=== PATIENT | male | born 1940 | race Caucasian/White ===

== ENCOUNTER 2017-08-20 19:58 | Emergency (ER) | payer MEDICARE ==
[~2017-08-20] VITALS: Ht 175.3 cm; Wt 75.0 kg
[2017-08-20 20:06] VITALS: BP 118/60; PULSE 74; RESP 16; TEMP 98.3; O2SAT 96
--- NOTE | 2017-08-20 20:28 | PD ---
HPI Chief Complaint: Fall Time Seen by Provider: 20:17 Travel History International Travel<30 days: No Contact w/Intl Traveler<30days: No Traveled to known affect area: No History of Present Illness HPI 77-year-old male presents the emergency department status post tripping and fall at approximately noontime today. Patient remembers the fall and denies loss of consciousness but states he did feel somewhat dazed for an hour or 2 afterwards. Patient is complaining of pain in the upper central neck cervical collar was placed in triage. Patient denies significant headache but does have some pain with an abrasion to the anterior forehead. Patient denies any other injury currently. The pain and neck is about a 6 out of 10. He states it's improved wearing a cervical collar. He has no known drug allergies. [facility] Social History Alcohol Use: No Tobacco Use: No Substance Use: No Allergies-Medications (Allergen,Severity, Reaction): Coded Allergies: No Known Allergies (Unverified , 08/20/17) Reported Meds & Prescriptions Reported Meds & Active Scripts Active Reported [ Areds] 1 Drop EACH EYE HS Latanoprost Opth Drops (Latanoprost) 0.005% Drops 1 Drop EACH EYE HS Refrigerate until opened. Furosemide 20 Mg Tab 20 Mg PO DAILY Spironolactone 100 Mg Tab 100 Mg PO DAILY Fluoxetine (Fluoxetine HCl) 20 Mg Tab 20 Mg PO DAILY Tramadol (Tramadol HCl) 50 Mg Tab 50 Mg PO Q6H PRN Lactulose 10 Gram/15 Ml (15 Ml) Solution 10 Mg PO DAILY Review of Systems Except as stated in HPI: all other systems reviewed are Neg General / Constitutional: No: Fever Eyes: No: Diploplia, Blurred Vision, Photophobia, Blind Spots, Visual changes, Blindness HENT: Positive: Neck Stiffness (see history present), Neck Pain, No: Headaches , Vertigo, Lightheadedness Cardiovascular: No: Chest Pain or Discomfort Respiratory: No: Shortness of Breath Gastrointestinal: No: Abdominal Pain Genitourinary: No: Dysuria Musculoskeletal: No: Pain Skin: No Rash Neurologic: No: Weakness Psychiatric: No: Depression Endocrine: No: Polydipsia Hematologic/Lymphatic: No: Easy Bruising Physical Exam Narrative GENERAL: Patient is alert and oriented 3. SKIN: Warm and dry. Normal color. Normal turgor. Patient has a very superficial abrasion to the anterior right forehead approximately quarter- sized. There is no significant bleeding. There are are no other significant skin wounds noted. HEAD: Atraumatic. Normocephalic. Mildly tender in the contusion site. No bony tenderness. EYES: Pupils equal and round. No scleral icterus. No injection or drainage. Ocular motions are normal bilaterally. No nystagmus. ENT: No nasal bleeding or discharge. Mucous membranes pink and moist. No dental injury. Pharynx is clear. Airway is patent. NECK: Trachea midline. Cervical collar is maintained for CT clearance of the cervical spine. CARDIOVASCULAR: Regular rate and rhythm. No murmurs gallops or rubs appreciated. RESPIRATORY: No accessory muscle use. Clear to auscultation. Breath sounds equal bilaterally. GASTROINTESTINAL: Abdomen soft, non-tender, nondistended. Hepatic and splenic margins not palpable. MUSCULOSKELETAL: Extremities without clubbing, cyanosis, or edema. No obvious deformities. NEUROLOGICAL: Awake and alert. No obvious cranial nerve deficits. Motor grossly within normal limits. Five out of 5 muscle strength in the arms and legs. Normal speech. PSYCHIATRIC: Appropriate mood and affect; insight and judgment normal. Data Data Last Documented VS Vital Signs Date Time Temp Pulse Resp B/P (MAP) Pulse Ox O2 Delivery O2 Flow Rate FiO2 08/20/17 20:23 Room Air 08/20/17 20:06 98.3 74 16 118/60 (79) [address] Brain W/O Iv Contrast(Rout) (08/20/17 20:17) Ct Cerv Spine W/O Contrast (08/20/17 20:17) Tetanus/Diphtheria Tox Adult (Tetanus/Di (08/20/17 20:45) MDM Medical Decision Making Medical Screen Exam Complete: Yes Emergency Medical Condition: Yes Differential Diagnosis Trip and fall. Head contusion. Neck pain. Neck fracture. Intracranial bleed. Narrative Course Appears no acute distress. He is alert and oriented 3. CT of the head and neck are ordered. Patient states he already took some tramadol that he had at home as well as some aspirin. 2100 hrs., CTs are still pending. Patient is discussed with Dr. Booth who will assume care of the patient is a term and final disposition. Condition: Stable Salvador Veras Aug 20, 2017 20:28
[2017-08-20] MEDS ORDERED: LACT10SO5 PO (20:35)
[2017-08-20] MEDS ORDERED: FURO20TA PO (20:35)
[2017-08-20] MEDS ORDERED: FLUO1TAB3 PO (20:35)
[2017-08-20] MEDS ORDERED: TRAM50TA PO (20:35)
[2017-08-20] MEDS ORDERED: SPIR100T PO (20:35)
[2017-08-20] MEDS ORDERED: LATA0.002 EACH EYE (20:35)
[2017-08-20] MEDS ORDERED: AREDS EACH EYE (20:35)
[2017-08-20] MEDS ORDERED: TETANUS/DIPHTHERIA TOXOID ADULT 0.5 ML VIAL IM ONE (20:45)
--- NOTE | 2017-08-20 21:20 | RADRPT ---
EXAM DATE/TIME: 08/20/2017 21:06 [facility] COMPARISON: No previous studies available for comparison. INDICATIONS : Trauma. Fall. Head and neck pain. Forehead abrasions. RADIATION DOSE: 60.68 CTDIvol (mGy) MEDICAL HISTORY : Carcinoma, prostate. SURGICAL HISTORY : Prostatectomy. ENCOUNTER: Initial ACUITY: 1 day PAIN SCALE: 5/10 LOCATION: cranial TECHNIQUE: Multiple contiguous axial images were obtained of the head. Using automated exposure control and adj ustment of the mA and/or kV according to patient size, radiation dose was kept as low as reasonably a chievable to obtain optimal diagnostic quality images. DICOM format image data is available electro nically for review and comparison. FINDINGS: CEREBRUM: There is mild generalized atrophy. Ventricles are normal in size given the degree of atrophy. No tyrel dence of midline shift, mass lesion, hemorrhage or acute infarction. No extra-axial fluid collection s are seen. POSTERIOR FOSSA: The cerebellum and brainstem are intact. The 4th ventricle is midline. The cerebellopontine angle i s unremarkable. EXTRACRANIAL: The visualized portion of the orbits is intact. SKULL: The calvaria is intact. No evidence of skull fracture. CONCLUSION: No acute intracranial abnormality is identified. Yayo Sandoval MD on August 20, 2017 at 21:16 Board Certified Radiologist. This report was verified electronically.
--- NOTE | 2017-08-20 21:35 | RADRPT ---
EXAM DATE/TIME: 08/20/2017 21:06 [facility] COMPARISON: No previous studies available for comparison. INDICATIONS : Trauma. Fall. Head and neck pain. Forehead abrasions. RADIATION DOSE: 26.45 CTDIvol (mGy) MEDICAL HISTORY : Carcinoma, prostate. SURGICAL HISTORY : Prostatectomy. Fusion, cervical. ENCOUNTER: Initial ACUITY: 1 day PAIN SCALE: 8/10 LOCATION: neck TECHNIQUE: Volumetric scanning of the cervical spine was performed. Multiplanar reconstructions in the sagittal, coronal and oblique axial planes were performed. Using automated exposure control and adjustment o f the mA and/or kV according to patient size, radiation dose was kept as low as reasonably achievable to obtain optimal diagnostic quality images. DICOM format image data is available electronically f or review and comparison. FINDINGS: There has been prior surgery with posterior hardware bilaterally extending from C3-T1. There are bila teral screws with vertical stabilization hardware. Laminectomy has been performed at C3-C6. Hardware demonstrates no finding to indicate failure or loosening. There is osseous fusion between the C3-T1 v ertebral bodies. The osseous fusion between C5 and C6 is only partial. No anterolisthesis or retrolis thesis is present. There is a lucency within the odontoid process. At the base of the odontoid process on the left there is a lucency extending to the anterior cortex at the base of the odontoid process and extending into the lucent area. Otherwise, no fracture is seen in the remaining level. There is no prevertebral sof t tissue swelling. The canal demonstrates no stenosis or definite epidural hematoma. Canal is partial ly obscured at the levels containing the hardware. The visualized upper lung zones are clear. CONCLUSION: 1. There is a lucency within the odontoid process that is likely chronic but there is a linear lucenc y extending from the anterior cortex into the lucency at the base of the odontoid process which could represent an acute fracture. If this does represent an acute fracture it does not extend through the posterior cortex and there is no displacement. No prevertebral soft tissue swelling is present. 2. There has been posterior spinal fixation and laminectomy extending from C3-T1. There is osseous fu rosa between the vertebral bodies at these levels. There are no findings to indicate hardware failure or loosening. Yayo Sandoval MD on August 20, 2017 at 21:25 Board Certified Radiologist. This report was verified electronically.
--- NOTE | 2017-08-20 21:59 | PD ---
Physical Exam Date Seen by Provider: Aug 20, 2017 Time Seen by Provider: 21:56 Narrative accepted in transfer of care GENERAL: Well-developed well-nourished elderly male in no acute distress no respiratory distress SKIN: Warm and dry. HEAD: Atraumatic. Normocephalic. Except for right forehead abrasion and small amount of soft tissue swelling EYES: Pupils equal and round. No scleral icterus. No injection or drainage. ENT: No nasal bleeding or discharge. Mucous membranes pink and moist. NECK: Trachea midline. No JVD. Cervical collar in place and maintained. With maintained spinal immobilization and collar loosened patient does have tenderness to palpation in the upper midline palpation of the cervical spine otherwise nontender and no bony step-off noted. Cervical collar resecured. CARDIOVASCULAR: Regular rate and rhythm. RESPIRATORY: No accessory muscle use. Clear to auscultation. Breath sounds equal bilaterally. GASTROINTESTINAL: Abdomen soft, non-tender, nondistended. Hepatic and splenic margins not palpable. MUSCULOSKELETAL: Extremities without clubbing, cyanosis, or edema. No obvious deformities. NEUROLOGICAL: Awake and alert. No obvious cranial nerve deficits. Motor grossly within normal limits. Five out of 5 muscle strength in the arms and legs. Normal speech. PSYCHIATRIC: Appropriate mood and affect; insight and judgment normal. Data Data Last Documented VS Vital Signs Date Time Temp Pulse Resp B/P (MAP) Pulse Ox O2 Delivery O2 Flow Rate FiO2 08/20/17 20:23 Room Air 08/20/17 20:06 98.3 74 16 118/60 (79) [address] Brain W/O Iv Contrast(Rout) (08/20/17 20:17) Ct Cerv Spine W/O Contrast (08/20/17 20:17) Tetanus/Diphtheria Tox Adult (Tetanus/Di (08/20/17 20:45) Spine, Cervical Fl/Ext Only (08/20/17 ) Mri C Spine W/O Contrast (08/21/17 ) Ed Discharge Order (08/21/17 01:13) Apply Cervical Collar (08/21/17 01:13) [facility] Medical Record Reviewed: Yes Supervised Visit with DIAN: Yes Interpretation(s) Cervical flexion/extension XR FINDINGS: The vertebral bodies are normal in alignment on the lateral view. There is anterior fusion at C3-C4. There is posterior fusion from C3-C7. Flexion- extension views demonstrate good range of motion and no subluxation is seen. Osseous structures are osteopenic. CONCLUSION: 1. Extensive post surgical changes. No abnormal motion identified. Abimael Grant MD on August 20, 2017 at 23:29 Board Certified Radiologist. This report was verified electronically. Last Impressions Head CT 08/20/172016 Signed Impressions: Service Date/Time: Sunday, August 20, 2017 21:06 - CONCLUSION: No acute intracranial abnormality is identified. Yayo Sandoval MD Cervical Spine CT 08/20/172016 Signed Impressions: Service Date/Time: Sunday, August 20, 2017 21:06 - CONCLUSION: 1. There is a lucency within the odontoid process that is likely chronic but there is a linear lucency extending from the anterior cortex into the lucency at the base of the odontoid process which could represent an acute fracture. If this does represent an acute fracture it does not extend through the posterior cortex and there is no displacement. No prevertebral soft tissue swelling is present. 2. There has been posterior spinal fixation and laminectomy extending from C3-T1. There is osseous fusion between the vertebral bodies at these levels. There are no findings to indicate hardware failure or loosening. Yayo Sandoval MD MRI cervical spine w/o: CONCLUSION: 1. Extensive post surgical changes without evidence of spinal stenosis. 2. No acute findings are present Abimael Grant MD on August 21, 2017 at 0:39 Board Certified Radiologist. This report was verified electronically. Differential Diagnosis Minor CHI, ICH, skull fracture, cervical spine sprain strain fracture cord compression Narrative Course Accepted in transfer of care for follow-up of pending imaging studies At 9:30 PM imaging studies resulted and identified as possible C2 fracture; with maintain spinal immobilization tenderness is noted to palpation in the proximal midline of the cervical spine c-collar recent cultures and maintained. Call placed to solar energy installation manager neurosurgery, Dr Iraheta. Per patient awakened from a nap around noon time and after getting up out of bed shortly thereafter fell to the ground. No preceding chest pain palpitations or dizziness lightheadedness shortness of breath or recent febrile illness. No new upper extremity lower extremity numbness tingling or weakness. Patient states he did fall forward hitting his forehead and did not lose consciousness. Patient states he felt dazed for several hours afterwards but had no nausea no vomiting and no new upper or lower extremity numbness tingling or weakness. 10 years ago underwent surgery with laminectomy and fusion at the level of C3 to T1. At 1:10 AM flexion extension film reveals no instability is otherwise found to be normal except for osteopenic bone and MRI the cervical spine reveals no acute abnormality; patient's case has been discussed with on-call neurosurgeon who felt that flexion extension films with only indicated imaging study for determining patient stability and that aware that MRI was are in progress and that that may or may not provide full information but does recommend patient can be discharged to home safely if his flexion extension films show spine stability otherwise patient will of course need admission this is been discussed with the patient and imaging studies revealed no acute instability and MRI reveals no acute abnormality; cervical collar removed by me soft collar provided for comfort to patient per his request. Patient requests refill of tramadol Physician Communication Physician Communication all placed to Dr Iraheta solar energy installation manager NS; discussed imaging study and radiology report with Dr Iraheta solar energy installation manager neurosurgeon -- recommends flexion/extension film of the cervical spine if stable discharge home o/w will require admission Diagnosis Primary Impression: Minor closed head injury Additional Impression: Acute cervical myofascial strain Qualified Codes: S16.1XXA - Strain of muscle, fascia and tendon at neck level , initial encounter Referrals: Primary Care Physician 2 days Patient Instructions: General Instructions Additional Instruction: Follow head injury precautions 24 hours Use ice intermittently to areas of soft tissue swelling for first 12-24 hours then moist heat for comfort Take acetaminophen/Tylenol as needed for pain less than 5/10 intensity and take as tolerated ibuprofen 400 mg as often as every 6-8 hours for pain associated with inflammation or greater than 5/10 intensity Use tramadol for pain greater than 5/10 in intensity with caution as may impair judgment, delay reaction time, or increase risk for fall Takes Zofran as prescribed as needed for nausea and/or vomiting Return to the emergency department for pain fever vomiting or any concerns Follow-up with your primary care provider call office on Tuesday to schedule follow-up appointment Med/Other Pt SpecificInfo: Prescription(s) given Scripts Tramadol (Tramadol) 50 Mg Tab 50 MG PO Q6H Y for PAIN, #12 TAB 0 Refills Prov: Barbara Booth MD 08/21/17 Ondansetron Odt (Zofran Odt) 4 Mg Tab 4 MG SL Q6HR Y for Nausea/Vomiting, #10 TAB 0 Refills Prov: Barbara Booht MD 08/21/17 Disposition: 01 DISCHARGE HOME Condition: Stable Barbara Booth MD Aug 20, 2017 21:59
--- NOTE | 2017-08-20 23:32 | RADRPT ---
EXAM DATE/TIME: 08/20/2017 23:04 [facility] COMPARISON: No previous studies available for comparison. INDICATIONS : Fall, neck pain. MEDICAL HISTORY : None. SURGICAL HISTORY : Prostatectomy. Fusion, cervical. ENCOUNTER: Initial ACUITY: 1 day PAIN SCORE: 0/10 LOCATION: Bilateral C-spine FINDINGS: The vertebral bodies are normal in alignment on the lateral view. There is anterior fusion at C3-C4. There is posterior fusion from C3-C7. Flexion-extension views demonstrate good range of motion and no subluxation is seen. Osseous structures are osteopenic. CONCLUSION: 1. Extensive post surgical changes. No abnormal motion identified. Abimael Grant MD on August 20, 2017 at 23:29 Board Certified Radiologist. This report was verified electronically.
--- NOTE | 2017-08-21 00:44 | RADRPT ---
EXAM DATE/TIME: 08/21/2017 00:03 [facility] COMPARISON: No previous studies available for comparison. INDICATIONS : Trauma. MEDICAL HISTORY : Carcinoma, prostate. SURGICAL HISTORY : Fusion, cervical. Prostatectomy. Inguinal hernia repair. ENCOUNTER: Initial ACUITY: 1 day PAIN SCORE: 6/10 LOCATION: neck TECHNIQUE: Multiplanar, multisequence MRI examination of the cervical spine was performed. FINDINGS: Sagittal images demonstrate normal vertebral body alignment and curvature. No focal areas of marrow r eplacement are identified. There is fusion anteriorly from C3-T1 with posterior fusion from C3-C7. Th e craniocervical junction appears normal. The cord itself is normal in caliber and signal intensity. Axial images were performed from C2-3 through C7-T1. C2-C3: No significant abnormalities identified. C3-C4: No significant abnormalities identified. C4-C5: No significant abnormalities identified. C5-C6: Postsurgical changes as above. There is no significant spinal canal stenosis. The neural foramina are clear bilaterally. C6-C7: No significant abnormalities identified. C7-T1: No significant abnormalities identified. CONCLUSION: 1. Extensive post surgical changes without evidence of spinal stenosis. 2. No acute findings are present Abimael Grant MD on August 21, 2017 at 0:39 Board Certified Radiologist. This report was verified electronically.
[2017-08-21] MEDS ORDERED: ZOFR4TAB3 SL (01:10)
[2017-08-21] MEDS ORDERED: TRAM50TA PO (01:21)
[2017-08-21 01:33] VITALS: BP 120/64
== END 2017-08-21 01:34 | disposition home or self-care (01) ==
LOC: PHEFT 19:58
DX: S09.8XXA Other specified injuries of head, initial encounter (principal); S16.1XXA Strain of muscle, fascia and tendon at neck level, initial encounter; S00.81XA Abrasion of other part of head, initial encounter; Z23 Encounter for immunization; W01.0XXA Fall on same level from slipping, tripping and stumbling without subsequent striking against object, initial encounter
CPT/HCPCS: 70450; 72040; 72125; 72141; 90471; 90714

== ENCOUNTER 2018-06-17 06:21 | Inpatient (IN) ==
[2018-06-17] MEDS ORDERED: Pantoprazole Inj 80 MG in Sodium Chlor 0.9% Inj 35 ML IV.SIG ONE (06:33)
[2018-06-17] MEDS ORDERED: Pantoprazole Inj 80 MG in Sodium Chlor 0.9% Inj 100 ML IV.CONT SCH (07:00)
[2018-06-17] MEDS ORDERED: Sodium Chlor 0.9% Inj 500 ML IV.SIG SCH ×2 (07:00→08:00)
[2018-06-17 07:01] LABS: Baso % (Auto) 0.6 % (0.0-2.0); Eos # (Auto) 0.1 th/mm3 (0.0-0.4); Eos % (Auto) 1.5 % (0.0-4.0); Hematocrit 21.7 % (39.0-51.0); Hemoglobin 7.5 gm/dL (13.0-17.0); Lymph # (Auto) 0.6 th/mm3 (1.0-4.8); Lymph % (Auto) 8.9 % (9.0-44.0); Mean Corpuscular HGB Conc 34.4 % (32.0-36.0); Mean Corpuscular Hemoglobin 31.9 pg (27.0-34.0); Mean Corpuscular Volume 92.5 fL (80.0-100.0); Mean Platelet Volume 8.1 fL (7.0-11.0); Mono # (Auto) 1.1 th/mm3 (0.0-0.9); Mono % (Auto) 16.1 % (0.0-8.0); Neut # (Auto) 5.1 th/mm3 (1.8-7.7); Neut % (Auto) 72.9 % (16.0-70.0); Platelet Count 147 th/mm3 (150-450); Red Blood Count 2.34 mil/mm3 (4.50-5.90); Red Cell Distribution Width 15.7 % (11.6-17.2)
[2018-06-17 07:08] LABS: Activated Partial Thrombo Time 26.4 sec (24.3-30.1); INR 1.5 Ratio; Prothrombin Time 15.6 sec (9.8-11.6)
[2018-06-17] MEDS ORDERED: Octreotide Inj 50 MCG/ML Vial IV.PUSH ONE (07:09)
[2018-06-17 07:14] LABS: Albumin 2.4 g/dL (3.4-5.0); Anion Gap 9 meq/L (5-15); Aspartate Aminotransferase 76 U/L (15-37); Blood Urea Nitrogen 37 mg/dL (7-18); Calcium 7.7 mg/dL (8.5-10.1); Carbon Dioxide 25.2 meq/L (21.0-32.0); Chloride 107 meq/L (98-107); Glomerular Filtration Rate Greater Than 89 mL/min (>89); Glucose,Random 150 mg/dL (74-106); Lipase 149 U/L (73-393); Potassium 4.2 meq/L (3.5-5.1); Sodium 141 meq/L (136-145)
[2018-06-17 07:15] LABS: Alanine Aminotransferase 20 U/L (12-78)
[2018-06-17 07:20] LABS: Alkaline Phosphatase 71 U/L (45-117); Total Protein 5.2 g/dL (6.4-8.2); Troponin I 0.04 ng/mL (0.02-0.05)
--- NOTE | 2018-06-17 07:21 | ED ---
HPI General Chief complaint: GI Bleed Stated complaint: Medical Time Seen by Provider: 06/17/18 06:31 Source: EMS Mode of arrival: EMS Limitations: no limitations History of Present Illness HPI Narrative: 78-year-old male presents to the emergency department from home for evaluation of generalized weakness and black tarry stools with one episode of coffee-ground emesis. Upon EMS arrival patient was noted to be hypotensive with a reported systolic blood pressure of 80-85 mmHg. Patient was given a bolus of normal saline with good blood pressure response. Patient was noted to have some mild decrease in mentation which improved after IV fluids and improved blood pressure. Patient had no emesis or loose stool while being transported by paramedics. Patient denies any pain. Patient has prior history of nonalcoholic cirrhosis. Patient's had GI bleed in the past. Patient's been evaluated by hematology in the past for pancytopenia. Patient denies any shortness of breath or chest pain fever or chills. Patient denies any injury. Patient has not noticed any increased bruising. MD complaint: coffee ground emesis and melena Onset (ago): hour(s) Pain Consistency: other (none) Severity: severe Relieving factors: none Exacerbating factors: none Context: history of GI bleed, liver disease (bowers cirrhosis) and near syncope Associated symptoms: vomiting (x 1) Treatments Prior to Arrival: none (iv fluids) Related Data Home Medications Medication Instructions Recorded Confirmed carisoprodol 350 mg PO HS 06/17/18 06/17/18 fluoxetine 20 mg PO DAILY 06/17/18 06/17/18 furosemide 40 mg PO DAILY 06/17/18 06/17/18 lactulose [Generlac] 10 g PO QID 06/17/18 06/17/18 latanoprost 1 drp OPHTHALMIC (EYE) QPM 06/17/18 06/17/18 spironolactone 100 mg PO DAILY 06/17/18 06/17/18 tramadol 50 mg PO Q6H PRN 06/17/18 06/17/18 Allergies Allergy/AdvReac Type Severity Reaction Status Date / Time No Known Allergies Allergy Verified 06/17/18 06:38 Review of Systems ROS: all other systems reviewed are negative PMFSH History History Provided By: Patient (Cirrhosis GI bleed pancytopenia), 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 Elderly male with pallor. No acute respiratory distress. GCS 14 SKIN: Focused skin assessment cool/dry. HEAD: Normocephalic. EYES: No scleral icterus. No injection or drainage. Conjunctiva pallor. NECK: Supple, trachea midline. No JVD or lymphadenopathy. CARDIOVASCULAR: Regular rate and rhythm without murmurs, gallops, or rubs. RESPIRATORY: Breath sounds equal bilaterally. No accessory muscle use. GASTROINTESTINAL: Abdomen soft, non-tender, nondistended. Rectal exam tarry briskly Hemoccult positive stool MUSCULOSKELETAL: No cyanosis, or edema. BACK: Nontender without obvious deformity. No CVA tenderness. Procedures Hemaprompt Stool Procedural Steps Taken: specimen placed in appropriate test area, developer placed on specimen and control areas and controls appropriately positive and negative Hemaprompt Stool Result: positive Course Consultations Consultation #1: Discussed with Dr. Smith we will see patient in consultation aware of hemoglobin Protonix bolus infusion of octreotide bolus and infusion and prior history of cirrhosis, nonalcoholic Consultation #2: Discussed with Dr. Bloom request patient to be admitted to seventh floor medical surge telemetry unit with consult to GI is aware that patient's case has been discussed with Dr. Smith Time: 07:50 Initial Documented Vital Signs Temperature 98.3 F 06/17/18 06:30 Pulse Rate 82 06/17/18 06:30 Respiratory Rate 16 06/17/18 06:30 Blood Pressure 100/62 06/17/18 06:30 Pulse Oximetry 100 06/17/18 06:30 Last Documented Vital Signs Temperature 98.3 F 06/17/18 06:30 Pulse Rate 78 06/17/18 06:42 Respiratory Rate 16 06/17/18 06:42 Blood Pressure 101/56 L 06/17/18 07:10 Pulse Oximetry 100 06/17/18 06:45 Medical Decision Making MDM Narrative Medical decision making narrative: 78-year-old male with history of cirrhosis upper GI bleed in the past and remote history of pancytopenia presents with coffee-ground emesis 1 and melena. Patient with near syncopal episode at home. Per paramedics patient with black tarry stool around his clothing and on the floor. Patient was noted to be hypotensive at EMS arrival in the home but now it runs in the patient denies any pain. IV access obtained specimens collected patient placed on desk monitor with continuous pulse oximetry 500 cc bolus of normal saline at administered and patient ordered blood 1 unit to be transfused upon availability with 3 units on hold. Imaging and EKG ordered. Call placed to gastric nephrology on-call patient given Protonix bolus as well as Protonix infusion and given one-time dose of octreotide with infusion. Hemoglobin 7.5 Call placed to medicine service for admission Significant other at bedside states does not take NSAIDs take spironolactone lactulose Soma and vitamins. Patient has been having some low back pain but did not take any NSAIDs overnight. Patient did hear fall in the bathroom but there was no injury reportedly. At that time black stool is noted. 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 Mckeon in [place], last endoscopy was in the spring and is reportedly normal no recalled report of esophageal varices. Medical Screen Exam Complete: Yes Emergency Medical Condition: Yes Differential Diagnosis Differential Diagnosis: Upper GI bleed, lower GI bleed, hemorrhagic shock, esophageal variceal bleed, NSAID use, Medical Records Medical records reviewed: Yes I reviewed the patient's medical records. Oncology note from 2017 Lab Data Lab results reviewed: Yes I reviewed the patient's lab results. Result diagrams: 06/17/18 06:45 06/17/18 06:45 Lab Results 06/17/18 06/17/18 06/17/18 Range/Units 06:45 06:45 06:45 WBC 7.0 (4.0-11.0) th/mm3 RBC 2.34 L (4.50-5.90) mil/mm3 Hgb 7.5 L (13.0-17.0) gm/dL Hct 21.7 L (39.0-51.0) % MCV 92.5 (80.0-100.0) fL MCH 31.9 (27.0-34.0) pg MCHC 34.4 (32.0-36.0) % RDW 15.7 (11.6-17.2) % Plt Count 147 L (150-450) th/mm3 MPV 8.1 (7.0-11.0) fL Neut % (Auto) 72.9 H (16.0-70.0) % Lymph % (Auto) 8.9 L (9.0-44.0) % Dawson % (Auto) 16.1 H (0.0-8.0) % Eos % (Auto) 1.5 (0.0-4.0) % Baso % (Auto) 0.6 (0.0-2.0) % Neut # (Auto) 5.1 (1.8-7.7) th/mm3 Lymph # (Auto) 0.6 L (1.0-4.8) th/mm3 Dawson # (Auto) 1.1 H (0.0-0.9) th/mm3 Eos # (Auto) 0.1 (0.0-0.4) th/mm3 Baso # (Auto) 0.0 (0.0-0.2) th/mm3 WBC Differential . Differential Comment Auto diff final PT 15.6 H (9.8-11.6) sec INR 1.5 Ratio APTT 26.4 (24.3-30.1) sec Sodium 141 (136-145) meq/L Potassium 4.2 (3.5-5.1) meq/L Chloride 107 (98-107) meq/L Carbon Dioxide 25.2 (21.0-32.0) meq/L Anion Gap 9 (5-15) meq/L BUN 37 H (7-18) mg/dL Creatinine 0.58 L (0.60-1.30) mg/dL Estimated GFR Greater than 89 (>89) mL/min Random Glucose 150 H (74-106) mg/dL Calcium 7.7 L (8.5-10.1) mg/dL Magnesium 2.0 (1.5-2.5) mg/dL Total Bilirubin 1.2 H (0.2-1.0) mg/dL AST 76 H (15-37) U/L ALT 20 (12-78) U/L Alkaline Phosphatase 71 (45-117) U/L Ammonia (11-32) mcmol/L Troponin I 0.04 (0.02-0.05) ng/mL Total Protein 5.2 L (6.4-8.2) g/dL Albumin 2.4 L (3.4-5.0) g/dL Lipase 149 (73-393) U/L Serum Alcohol Less than 3 (0-5) mg/dL Blood Type Blood Type Recheck Antibody Screen MTS Gel Crossmatch 06/17/18 06/17/18 Range/Units 06:45 06:45 WBC (4.0-11.0) th/mm3 RBC (4.50-5.90) mil/mm3 Hgb (13.0-17.0) gm/dL Hct (39.0-51.0) % MCV (80.0-100.0) fL MCH (27.0-34.0) pg MCHC (32.0-36.0) % RDW (11.6-17.2) % Plt Count (150-450) th/mm3 MPV (7.0-11.0) fL Neut % (Auto) (16.0-70.0) % Lymph % (Auto) (9.0-44.0) % Dawson % (Auto) (0.0-8.0) % Eos % (Auto) (0.0-4.0) % Baso % (Auto) (0.0-2.0) % Neut # (Auto) (1.8-7.7) th/mm3 Lymph # (Auto) (1.0-4.8) th/mm3 Dawson # (Auto) (0.0-0.9) th/mm3 Eos # (Auto) (0.0-0.4) th/mm3 Baso # (Auto) (0.0-0.2) th/mm3 WBC Differential Differential Comment PT (9.8-11.6) sec INR Ratio APTT (24.3-30.1) sec Sodium (136-145) meq/L Potassium (3.5-5.1) meq/L Chloride (98-107) meq/L Carbon Dioxide (21.0-32.0) meq/L Anion Gap (5-15) meq/L BUN (7-18) mg/dL Creatinine (0.60-1.30) mg/dL Estimated GFR (>89) mL/min Random Glucose (74-106) mg/dL Calcium (8.5-10.1) mg/dL Magnesium (1.5-2.5) mg/dL Total Bilirubin (0.2-1.0) mg/dL AST (15-37) U/L ALT (12-78) U/L Alkaline Phosphatase (45-117) U/L Ammonia 46 H (11-32) mcmol/L Troponin I (0.02-0.05) ng/mL Total Protein (6.4-8.2) g/dL Albumin (3.4-5.0) g/dL Lipase (73-393) U/L Serum Alcohol (0-5) mg/dL Blood Type O Negative Blood Type Recheck Required Antibody Screen Negative MTS Gel Crossmatch See Detail Imaging Data Radiologist's impression: Chest X-Ray 06/17/18 06:31 CONCLUSION: Lungs are grossly clear. Discharge Plan Discharge Disposition Patient Disposition: 30 Still Patient Discharge Condition Condition: Fair Discharge Details Diagnosis: Upper gastrointestinal hemorrhage Physicians Team ED Provider: Barbara Booth Primary Care Provider: Alfonzo Talavera Rxs /Orders / Referrals /Forms Prescriptions: No Action carisoprodol 350 mg Tablet 350 mg PO HS RF: 0 furosemide 40 mg Tablet 40 mg PO DAILY RF: 0 latanoprost 0.005 % Drops 1 drp OPHTHALMIC (EYE) QPM RF: 0 spironolactone 100 mg Tablet 100 mg PO DAILY RF: 0 tramadol 50 mg Tablet 50 mg PO Q6H PRN (Reason: Pain) RF: 0 fluoxetine 20 mg Tablet 20 mg PO DAILY RF: 0 lactulose [Generlac] 10 gram/15 mL Solution 10 g PO QID RF: 0 Status ED Status: With Doctor
--- NOTE | 2018-06-17 07:38 | XR ---
EXAM DATE: 06/17/2018 7:06 AM EDT AGE/SEX: 78 years / Male INDICATIONS: Short of Breath CLINICAL DATA: This is the patient's initial encounter. Patient reports that signs and symptoms have been present for 1 day and indicates a pain score of 0/10. MEDICAL/SURGICAL HISTORY: . Carcinoma, prostate. . Fusion, cervical. Prostatectomy. Inguina l hernia repair COMPARISON: None. FINDINGS: A single AP view of the chest demonstrates the lungs to be symmetrically aerated without evidence of mass, infiltrate or effusion. The cardiomediastinal contours are unremarkable. Osseous structures a re intact. CONCLUSION: Lungs are grossly clear. Electronically signed by: Lopez Matute MD 06/17/2018 7:37 AM EDT
--- NOTE | 2018-06-17 07:58 | CT ---
EXAM DATE: 06/17/2018 7:51 AM EDT AGE/SEX: 78 years / Male INDICATIONS: General weakness. CLINICAL DATA: This is the patient's initial encounter. Patient reports that signs and symptoms have been present for 1 day and indicates a pain score of 0/10. MEDICAL/SURGICAL HISTORY: Cirrhosis. None. RADIATION DOSE: 66.34 CTDI (mGy) COMPARISON: [facility], CT BRAIN W/O CONTRAST, 08/20/2017. . TECHNIQUE: CT of the head without contrast. Using automated exposure control and adjustment of the mA and/or kV according to patient size, radiation dose was kept as low as reasonably achievable to ob tain optimal diagnostic quality images. DICOM format image data is available electronically for revi ew and comparison. FINDINGS: Cerebrum: There is mild diffuse atrophy. The ventricles are normal for age. No evidence of midline shift, mass lesion, hemorrhage or acute infarction. No extraaxial fluid collections are seen. Posterior Fossa: The cerebellum and brainstem are intact. The 4th ventricle is midline. The cerebe llopontine angle is unremarkable. Extracranial: The visualized portion of the orbits is intact. Skull: The calvaria is intact. No evidence of skull fracture. CONCLUSION: 1. Mild diffuse atrophy. No evidence of hemorrhage or edema. No mass or mass effect. . Electronically signed by: Lopez Matute MD 06/17/2018 7:57 AM EDT
[2018-06-17] MEDS: Thiamine Inj 100 MG in Sodium Chlor 0.9% Inj 100 ML IV.SIG SCH (08:16)
[2018-06-17] MEDS: Octreotide Inj 500 MCG in Sodium Chlor 0.9% Inj 500 ML IV.CONT SCH (08:16)
[2018-06-17] MEDS ORDERED: Sod Chloride 0.9% Inj 1,000 ML IV.CONT SCH (08:30)
[2018-06-17] MEDS: FLUoxetine 20 MG Capsule PO SCH (10:19)
[2018-06-17 10:34] LABS: Hematocrit 21.1 % (39.0-51.0); Hemoglobin 7.2 gm/dL (13.0-17.0)
--- NOTE | 2018-06-17 13:17 | P.HPIM ---
History of Present Illness [facility] Physician: Alfonzo Talavera DO History of Present Illness: 78-year-old male with a medical history significant for liver cirrhosis, previous GI bleed from duodenal ulcer who had an episode of black tarry stool and coffee-ground emesis. EMS reported systolic blood pressure in the 80s. The patient was given a normal saline bolus with good blood pressure response. Patient has known history of nonalcoholic liver cirrhosis and. There has been no recent change in his medications. He denies drinking alcohol. Denies taking NSAIDs or steroids recently. On my evaluation, he denies shortness of breath or chest pain. He is somnolent and his report this is not his usual behavior. He is aware of self and place. Patient had another large episode of tarry stool prior to my evaluation today. - Diagnosis (1) Cirrhosis of liver (2) Upper gastrointestinal hemorrhage Inpatient Certification: I certify that the inpatient services were ordered in accordance with Medicare regulations governing the order. 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 - Medical History Medical History: Medical History (Last Reviewed 06/17/18 @ 13:25 by Tasha Coronel MD) Cirrhosis GI bleed Heart murmur Sleep apnea - Surgical History Surgical History: Surgical History (Last Updated 06/17/18 @ 13:25 by Tasha Coronel MD) No history of previous surgery - Family History Family History: Family History (Last Updated 06/17/18 @ 13:27 by Tasha Coronel MD) Other Family history non-contributory - Social History I have reviewed the patient's Social History: Yes - Tobacco History Second Hand Smoke Exposure: No Tobacco Use In Past 30 Days: No Smoking Status: Former smoker Tobacco Type: Cigarettes - Alcohol History How Often Do You Have a Drink Containing Alcohol: Never - Substance Use History Substance History: No History of Abuse - Travel History Recent Travel in the [place] Within the Last 8 Weeks: No Recent Travel Out of the Country Within the Last 8 Weeks: No - Immunization History Tetanus Immunization: Unsure Hx Influenza Vaccine This Season: Unable to Assess Medications and Allergies Active Medications: Active Medications Fluoxetine HCl (Prozac) 20 mg PO DAILY [facility] Last Admin: 06/17/18 10:19 Dose: Not Given Pantoprazole Sodium 80 mg/ (Sodium Chloride) 100 mls @ 10 mls/hr IV.CONT CONT [facility] Last Admin: 06/17/18 08:16 Dose: 10 mls/hr Sodium Chloride (Ns Inj) 500 mls @ 0 mls/hr IV.SIG BOLUS LATRICE Last Infusion: 06/17/18 08:24 Dose: Infused Sodium Chloride (Ns Inj) 500 mls @ 0 mls/hr IV.SIG BOLUS LATRICE Octreotide Acetate 500 mcg/ (Sodium Chloride) 500.5 mls @ 25.02 mls/hr IV.CONT .Q20H1M [facility] Stop: 06/22/18 07:59 Last Admin: 06/17/18 08:16 Dose: 25 mcg/hr, 25.02 mls/hr Thiamine HCl 100 mg/ Sodium (Chloride) 101 mls @ 100 mls/hr IV.SIG DAILY [facility] Last Infusion: 06/17/18 09:19 Dose: Infused Sodium Chloride (Ns Inj) 1,000 mls @ 100 mls/hr IV.CONT .Q10H [facility] Stop: 06/17/18 18:29 Last Admin: 06/17/18 10:19 Dose: 100 mls/hr Ondansetron HCl (Zofran Inj) 4 mg IV.PUSH Q6H PRN PRN Reason: NAUSEA OR VOMITING Sodium Chloride (Ns Flush) 2 ml IV.FLUSH BID [facility] Last Admin: 06/17/18 10:19 Dose: 2 ml Sodium Chloride (Ns Flush) 2 ml IV.FLUSH PRN PRN PRN Reason: FLUSH AFTER USING IV ACCESS Tramadol HCl (Ultram) 50 mg PO Q6H PRN PRN Reason: PAIN 1 - 10 Allergies Allergy/AdvReac Type Severity Reaction Status Date / Time No Known Allergies Allergy Verified 06/17/18 06:38 Home Medications Medication Instructions Recorded Confirmed Type carisoprodol 350 mg PO HS 06/17/18 06/17/18 History fluoxetine 20 mg PO DAILY 06/17/18 06/17/18 History furosemide 40 mg PO DAILY 06/17/18 06/17/18 History lactulose [Generlac] 10 g PO QID 06/17/18 06/17/18 History latanoprost 1 drp OPHTHALMIC (EYE) QPM 06/17/18 06/17/18 History spironolactone 100 mg PO DAILY 06/17/18 06/17/18 History tramadol 50 mg PO Q6H PRN 06/17/18 06/17/18 History Exam Vital signs: Vital Signs 06/17/18 06:30 06/17/18 06:42 06/17/18 06:45 Temperature 98.3 F Pulse Rate 82 76 Respiratory Rate 16 16 Blood Pressure 100/62 103/55 L Pulse Oximetry 100 100 100 06/17/18 07:10 06/17/18 08:34 06/17/18 09:28 Temperature 99.6 F Pulse Rate Respiratory Rate Blood Pressure 101/56 L 99/51 L Pulse Oximetry 06/17/18 09:57 06/17/18 11:15 06/17/18 11:31 Temperature 99.9 F H 99.6 F Pulse Rate 79 86 Respiratory Rate 23 22 Blood Pressure 105/52 L 105/51 L 144/55 H Pulse Oximetry 97 97 06/17/18 12:00 06/17/18 12:48 Temperature 98.5 F 98.2 F Pulse Rate 79 78 Respiratory Rate 12 16 Blood Pressure 101/49 L 107/58 L Pulse Oximetry 97 97 Intake & Output 06/16/18 06/17/18 06/17/18 18:59 06:59 18:59 Intake Total 1036 / 1036 Balance 1036 / 1036 Weight 54.431 kg Intake: IV 636 / 636 Protonix Inj 80 MG In NS Inj 35 35 / 35 ML @ 420 mls/hr IV.SIG BOLUS ONE Rx#:[id number] NS Inj 500 ML @ Wide Open IV. 500 / 500 SIG BOLUS LATRICE Rx#:[id number] Thiamine Inj 100 MG In NS Inj 101 / 101 100 ML @ 100 mls/hr IV.SIG DAILY LATRICE Rx#:[id number] Intake (Blood Product) Amt 400 / 400 Rbc As-3 Leukoreduced Unit 400 / 400 [id number] Narrative: CONSTITUTIONAL/GENERAL: Elderly male. Somnolent SKIN: Somewhat pale. Not diaphoretic. HEAD: Atraumatic. Normocephalic. EYES: Pupils equal and round and reactive. Extra ocular motions are intact. No scleral icterus. No injection or drainage. ENT: Hearing grossly normal. Nose without drainage. Throat without visible erythema, exudates, masses, or lesions. NECK: Trachea midline. Neck is supple, non-tender. No palpable thyroid enlargement or nodularity. CARDIOVASCULAR: Normal rate and regular rhythm without murmurs, gallops, or rubs. No JVD. Peripheral pulses 2+ and symmetric. RESPIRATORY/CHEST: Symmetric, unlabored respirations. Breath sounds equal and clear to auscultation bilaterally. No wheezes, crackles, rales, or rhonchi. GASTROINTESTINAL: Abdomen soft, non-tender, non-distended. No hepato- splenomegaly, or palpable masses. No guarding. Bowel sounds present. MUSCULOSKELETAL: Extremities without clubbing, cyanosis, or edema. No joint tenderness or effusion noted. No calf tenderness. No mottling or clubbing. NEUROLOGICAL: Somnolent. Follows commands. Move all extremities spontaneously. No focal deficits. PSYCHIATRIC: No obvious mood problems. No apparent hallucinations or other psychotic thought process. Results - Labs CBC & Chem 7: 06/17/18 09:37 06/17/18 06:45 Labs: Short CBC 06/17/18 06/17/18 Range/Units 06:45 09:37 WBC 7.0 (4.0-11.0) th/mm3 Hgb 7.5 L 7.2 L (13.0-17.0) gm/dL Hct 21.7 L 21.1 L (39.0-51.0) % Plt Count 147 L (150-450) th/mm3 [facility] 06/17/18 06:45 Sodium 141 Potassium 4.2 Chloride 107 Carbon Dioxide 25.2 BUN 37 H Creatinine 0.58 L Calcium 7.7 L Cardiac Enzymes 06/17/18 Range/Units 06:45 Troponin I 0.04 (0.02-0.05) ng/mL Liver Function 06/17/18 Range/Units 06:45 Total Bilirubin 1.2 H (0.2-1.0) mg/dL AST 76 H (15-37) U/L ALT 20 (12-78) U/L Alkaline Phosphatase 71 (45-117) U/L Albumin 2.4 L (3.4-5.0) g/dL - Imaging Impressions Chest X-Ray 06/17/18 06:31 CONCLUSION: Lungs are grossly clear. Head CT 06/17/18 07:07 CONCLUSION: 1. Mild diffuse atrophy. No evidence of hemorrhage or edema. No mass or mass effect. . Caprini VTE Risk Assessment Caprini VTE Risk Assessment: Moderate/High Risk (score >= 2) VTE Pharmacological Exception Reason: Active bleeding Caprini Risk Assessment Model: Point Value = 1 Point Value = 2 Point Value = 3 Point Value = 5 Age 41-60 Minor surgery BMI > 25 kg/m2 Swollen legs Varicose veins or History of unexplained or recurrent spontaneous Oral contraceptives or hormone replacement Sepsis (< 1 month) Serious lung disease, including pneumonia (< 1 month) Abnormal pulmonary function Acute myocardial infarction Congestive heart failure (< 1 month) History of inflammatory bowel disease Medical patient at bed rest Age 61-74 Arthroscopic surgery Major open surgery (> 45 min) Laparoscopic surgery (> 45 min) Malignancy Confined to bed (> 72 hours) Immobilizing plaster cast Central venous access Age >= 75 History of VTE Family history of VTE Factor V Leiden Prothrombin [id number] Lupus anticoagulant Anticardiolipin antibodies Elevated serum homocysteine Heparin-induced thrombocytopenia Other congenital or acquired thrombophilia Stroke (< 1 month) Elective arthroplasty Hip, pelvis, or leg fracture Acute spinal cord injury (< 1 month) Prophylaxis Regimen: Total Risk Factor Score Risk Level Prophylaxis Regimen 0-1 Low Early ambulation 2 Moderate Order ONE of the following: *Sequential Compression Device (SCD) *Heparin 5000 units SQ BID 3-4 Higher Order ONE of the following medications: *Heparin 5000 units SQ TID *Enoxaparin/Lovenox 40 mg SQ daily (WT < 150 kg, CrCl > 30 mL/min) *Enoxaparin/Lovenox 30 mg SQ daily (WT < 150 kg, CrCl > 10-29 mL/min) *Enoxaparin/Lovenox 30 mg SQ BID (WT < 150 kg, CrCl > 30 mL/min) AND/OR *Sequential Compression Device (SCD) 5 or more Highest Order ONE of the following medications: *Heparin 5000 units SQ TID (Preferred with Epidurals) *Enoxaparin/Lovenox 40 mg SQ daily (WT < 150 kg, CrCl > 30 mL/min) *Enoxaparin/Lovenox 30 mg SQ daily (WT < 150 kg, CrCl > 10-29 mL/min) *Enoxaparin/Lovenox 30 mg SQ BID (WT < 150 kg, CrCl > 30 mL/min) AND *Sequential Compression Device (SCD) Assessment and Plan - Assessment (1) Cirrhosis of liver Code(s): K74.60 - Unspecified cirrhosis of liver Status: Acute (2) Upper gastrointestinal hemorrhage Code(s): K92.2 - Gastrointestinal hemorrhage, unspecified Status: Acute - Plan 78-year-old male with: Acute probable upper GI bleeding: - Patient with known liver cirrhosis and previous GI bleed. - GI consulted. Patient started on Protonix and octreotide drip. -N.p.o. -Hold Lasix and spironolactone given borderline hypotension. Acute blood loss anemia: - Hemoglobin on presentation is 7.5. Last documented hemoglobin about a year ago was normal. - Transfuse 2 units of PRBC - Follow serial H&H. Borderline hypotension: Secondary to above. - Continue IV fluids. Somnolence: Probably from acute anemia. Hyperammonemia may be contributing as well. -Can consider rifaximin, lactulose once acute GI bleeding resolves. Discussed Condition With: Dr. Booth.
--- NOTE | 2018-06-17 13:54 | MB ---
cc: Yeny Smith MD DATE: 06/17/2018 TYPE OF CONSULTATION: GI consultation. REASON FOR CONSULTATION: GI bleeding. HISTORY OF PRESENT ILLNESS: An 78-year-old male patient with a known case of liver cirrhosis and history of duodenal ulcer, who presented to the emergency room complaining of generalized weakness and black, tarry stool. Also, the patient had one episode of coffee-ground emesis. The patient, when initially seen, was hypotensive and that responded properly with IV fluid. The patient initially was somnolent and not awake and currently he has returned to his level of consciousness. At the current time, the patient's history is very limited because of the patient's mental status and general condition, but the patient denies any epigastric pain. Denies any nausea or vomiting since admission, except 1 episode of black, tarry stool this morning. He did not have any fresh blood per rectum. No change in weight or in appetite. The patient had an endoscopy and colonoscopy done back in 01/2018 that was reported as normal. He had an upper endoscopy in 2011 when he had bleeding duodenal ulcer that is treated medically. Otherwise, no other significant GI history. During the emergency room evaluation, he was found to have a hemoglobin of 7.5, hematocrit of 21.7. His platelet count was low at 147. Otherwise, INR of 1.5, AST 76, ALT 20, total bilirubin 1.2, albumin 2.4. At the current time, he is hospitalized on a regular bed and is n.p.o. REVIEW OF SYSTEMS: Difficult to obtain at this current time because of his overall condition. PAST MEDICAL HISTORY: Liver cirrhosis attributed to heavy alcohol use several years ago, history of peptic ulcer disease. FAMILY HISTORY: Unremarkable. PSYCHOSOCIAL HISTORY: Unobtainable. PHYSICAL EXAMINATION: GENERAL: On examination, the patient found to be lethargic, slightly confused, difficult to communicate at the current time, but appears to be in a good hydration status. No jaundice or pallor noted. HEAD AND NECK: Normocephalic, atraumatic. Pupils equal and reactive to light. NECK: Supple neck. No lymphadenopathy. CHEST: Clear to auscultation bilaterally. No crackles or wheezes. HEART: Regular rate and rhythm. No murmurs. ABDOMEN: Soft, nontender. No hepatosplenomegaly. No palpable masses. EXTREMITIES: Normal pulses. No edema. NEUROLOGIC: Limited exam because of mental status, but appears to be nonfocal. SKIN: No rashes. ASSESSMENT AND PLAN: An 78-year-old male patient with a history of ethanol-induced liver injury, liver cirrhosis with a recent endoscopic evaluation including EGD and colonoscopy in 01/2018 that did not show varices, as per the patient's pet technologist, who presented with coffee-ground vomiting x1 and melenic stool with significant anemia. Will plan to hold on some Sandostatin for now. Continue proton pump inhibitor. Follow H and H and a blood transfusion as needed. Supportive care. Will check ammonia level and will proceed Tuesday with an endoscopy. Further recommendations to follow. MD GALINDO Mccoy/jacqueline , 01:32 PM , 01:41 PM
[2018-06-17] MEDS ORDERED: Sodium Chlor 0.9% Inj 250 ML IV.SIG SCH (14:00)
[2018-06-17 16:22] LABS: Hematocrit 22.5 % (39.0-51.0); Hemoglobin 7.7 gm/dL (13.0-17.0)
[2018-06-18 01:18] LABS: Hematocrit 25.6 % (39.0-51.0); Hemoglobin 8.9 gm/dL (13.0-17.0)
[2018-06-18] MEDS: Octreotide Inj 500 MCG in Sodium Chlor 0.9% Inj 500 ML IV.CONT SCH ×2 (04:26→23:52)
[2018-06-18 07:00] LABS: Eos # (Auto) 0.1 th/mm3 (0.0-0.4); Eos % (Auto) 3.9 % (0.0-4.0); Hematocrit 26.2 % (39.0-51.0); Hemoglobin 9.2 gm/dL (13.0-17.0); Lymph # (Auto) 0.5 th/mm3 (1.0-4.8); Lymph % (Auto) 13.3 % (9.0-44.0); Mean Corpuscular HGB Conc 35.1 % (32.0-36.0); Mean Corpuscular Hemoglobin 32.4 pg (27.0-34.0); Mean Corpuscular Volume 92.4 fL (80.0-100.0); Mean Platelet Volume 8.4 fL (7.0-11.0); Mono # (Auto) 0.5 th/mm3 (0.0-0.9); Mono % (Auto) 14.1 % (0.0-8.0); Neut # (Auto) 2.5 th/mm3 (1.8-7.7); Neut % (Auto) 67.7 % (16.0-70.0); Platelet Count 94 th/mm3 (150-450); Red Blood Count 2.83 mil/mm3 (4.50-5.90); Red Cell Distribution Width 15.7 % (11.6-17.2); White Blood Count 3.7 th/mm3 (4.0-11.0)
[2018-06-18 07:34] LABS: Alanine Aminotransferase 23 U/L (12-78); Albumin 2.6 g/dL (3.4-5.0); Alkaline Phosphatase 65 U/L (45-117); Anion Gap 7 meq/L (5-15); Aspartate Aminotransferase 70 U/L (15-37); Blood Urea Nitrogen 22 mg/dL (7-18); Calcium 7.8 mg/dL (8.5-10.1); Carbon Dioxide 22.1 meq/L (21.0-32.0); Chloride 116 meq/L (98-107); Glomerular Filtration Rate Greater Than 89 mL/min (>89); Glucose,Random 104 mg/dL (74-106); Potassium 3.6 meq/L (3.5-5.1); Sodium 145 meq/L (136-145); Total Protein 5.1 g/dL (6.4-8.2)
[2018-06-18 07:48] LABS: Ovalocytes 1+; Platelet Morphology Normal (Normal)
[2018-06-18] MEDS ORDERED: Dextrose 50% in Water 50 ML Vial IV.PUSH PRN (08:58)
--- NOTE | 2018-06-18 12:12 | ECG ---
Date Performed: 06/17/2018 Time Performed: 06:28:29 PTAGE: 78 years EKG: Sinus rhythm WITH FIRST DEGREE AV BLOCK WITH OCCASIONAL SUPRAVENTRICULAR PREMATURE COMPLEXES BORDERLINE LEFT AXIS DEVIATION RIGHT BUNDLE BRANCH BLOCK ABNORMAL ECG NO PREVIOUS TRACING DOCTOR: Abimael Soares Interpretating Date/Time 06/18/2018 12:09:56
--- NOTE | 2018-06-18 12:43 | P.PN ---
Subjective Interval history: Follow-up encephalopathy. He is awake today oriented to person and place. He wants to eat. Nursing reports of low BP. Physical Exam Vital signs: Vital Signs 06/17/18 12:48 06/17/18 15:56 06/17/18 16:00 Temperature 98.2 F 99.0 F 98.8 F Pulse Rate 78 73 78 Respiratory Rate 16 16 17 Blood Pressure 107/58 L 92/53 L 104/53 L Pulse Oximetry 97 97 98 06/17/18 16:20 06/17/18 20:00 06/18/18 00:00 Temperature 98.8 F 97.9 F 97.8 F Pulse Rate 78 75 75 Respiratory Rate 17 17 15 Blood Pressure 104/53 L 103/52 L 120/57 L Pulse Oximetry 98 97 98 06/18/18 04:00 06/18/18 08:00 06/18/18 12:00 Temperature 97.9 F 97.6 F 97.9 F Pulse Rate 74 69 71 Respiratory Rate 16 14 14 Blood Pressure 105/56 L 104/56 L 85/48 L Pulse Oximetry 98 98 97 Intake & Output 06/17/18 06/18/18 06/18/18 18:59 06:59 18:59 Intake Total 1536 / 1536 1500.5 / 1500.5 Balance 1536 / 1536 1500.5 / 1500.5 Weight 54.42 kg Intake: IV 736 / 736 1500.5 / 1500.5 SandoSTATIN Inj 500 MCG In NS 500.5 / 500.5 Inj 500 ML @ 25 MCG/HR 25.02 mls/hr IV.CONT .Q20H1M [facility] Rx#: [id number] Protonix Inj 80 MG In NS Inj 100 / 100 100 ML @ 10 mls/hr IV.CONT CONT [facility] Rx#:[id number] NS Inj 1,000 ML @ 100 mls/hr IV 1000 / 1000 .CONT .Q10H [facility] Rx#:[id number] Protonix Inj 80 MG In NS Inj 35 35 / 35 ML @ 420 mls/hr IV.SIG BOLUS ONE Rx#:[id number] NS Inj 250 ML @ 15 mls/hr IV. 0 / 0 SIG ONCE [facility] Rx#:[id number] NS Inj 500 ML @ Wide Open IV. 500 / 500 SIG BOLUS [facility] Rx#:[id number] Thiamine Inj 100 MG In NS Inj 101 / 101 100 ML @ 100 mls/hr IV.SIG DAILY [facility] Rx#:[id number] Intake (Blood Product) Amt 800 / 800 Rbc As-3 Leukoreduced Unit 400 / 400 [id number] Rbc As-3 Leukoreduced Unit 400 / 400 [id number] Other: # Voids 2 Date of Last Bowel Movement 06/17/18 06/17/18 # Bowel Movements 2 2 Narrative: CONSTITUTIONAL/GENERAL: Elderly male. SKIN: Somewhat pale. Not diaphoretic. HEAD: Atraumatic. Normocephalic. CARDIOVASCULAR: Normal rate and regular rhythm without murmurs, gallops, or rubs. No JVD. Peripheral pulses 2+ and symmetric. RESPIRATORY/CHEST: Symmetric, unlabored respirations. Breath sounds equal and clear to auscultation bilaterally. No wheezes, crackles, rales, or rhonchi. GASTROINTESTINAL: Abdomen soft, non-tender, non-distended. No hepato- splenomegaly, or palpable masses. No guarding. Bowel sounds present. MUSCULOSKELETAL: Extremities without clubbing, cyanosis, or edema. No joint tenderness or effusion noted. No calf tenderness. No mottling or clubbing. NEUROLOGICAL: Awake and oriented 2. Follows commands. Move all extremities spontaneously. No focal deficits. PSYCHIATRIC: No obvious mood problems. No apparent hallucinations or other psychotic thought process. Results - Labs CBC & Chem 7: 06/18/18 05:47 06/18/18 05:47 Laboratory Results - last 24 hr 06/17/18 06/17/18 06/18/18 06:45 15:35 00:35 WBC RBC Hgb 7.7 L 8.9 L Hct 22.5 L 25.6 L MCV MCH MCHC RDW Plt Count MPV Prelim Diff (Auto) Neut % (Auto) Lymph % (Auto) [place] % (Auto) Eos % (Auto) Baso % (Auto) Neut # (Auto) Lymph # (Auto) [place] # (Auto) Eos # (Auto) Baso # (Auto) WBC Differential Diff Scan Differential Comment Platelet Estimate Platelet Morphology Ovalocytes Sodium Potassium Chloride Carbon Dioxide Anion Gap BUN Creatinine Estimated GFR Random Glucose Calcium Total Bilirubin AST ALT Alkaline Phosphatase Ammonia Total Protein Albumin Blood Type O Negative Blood Type Recheck Required Antibody Screen Negative MTS Gel Crossmatch See Detail 06/18/18 06/18/18 06/18/18 05:47 05:47 09:38 WBC 3.7 L RBC 2.83 L Hgb 9.2 L Hct 26.2 L MCV 92.4 MCH 32.4 MCHC 35.1 RDW 15.7 Plt Count 94 L D MPV 8.4 Prelim Diff (Auto) Slide review pending Neut % (Auto) 67.7 Lymph % (Auto) 13.3 [place] % (Auto) 14.1 H Eos % (Auto) 3.9 Baso % (Auto) 1.0 Neut # (Auto) 2.5 Lymph # (Auto) 0.5 L [place] # (Auto) 0.5 Eos # (Auto) 0.1 Baso # (Auto) 0.0 WBC Differential . Diff Scan Auto diff confirmed Differential Comment . Platelet Estimate Low L Platelet Morphology Normal Ovalocytes 1+ H Sodium 145 Potassium 3.6 Chloride 116 H D Carbon Dioxide 22.1 Anion Gap 7 BUN 22 H Creatinine 0.52 L Estimated GFR Greater than 89 Random Glucose 104 Calcium 7.8 L Total Bilirubin 1.9 H AST 70 H ALT 23 Alkaline Phosphatase 65 Ammonia 60 H Total Protein 5.1 L Albumin 2.6 L Blood Type Blood Type Recheck Antibody Screen MTS Gel Crossmatch Assessment and Plan - Assessment (1) Cirrhosis of liver Code(s): K74.60 - Unspecified cirrhosis of liver Status: Acute (2) Upper gastrointestinal hemorrhage Code(s): K92.2 - Gastrointestinal hemorrhage, unspecified Status: Acute - Plan 78-year-old male with: Acute probable upper GI bleeding: - Patient with known liver cirrhosis and previous GI bleed. - GI consulted. Continue Protonix drip. - No active bleed start liquid diet and n.p.o. post midnight for endoscopy - Hold Lasix and spironolactone given borderline hypotension. Acute blood loss anemia: - Hemoglobin on presentation is 7.5. Last documented hemoglobin about a year ago was normal. - Improved with transfusion - Follow serial H&H. Borderline hypotension: Secondary to above. - Continue IV fluids. Stat labs Somnolence: Probably from acute anemia. Hyperammonemia may be contributing as well. Patient has hepatic encephalopathy which is improving -Can consider rifaximin, restart lactulose DVT prophylaxis with SCD and early ambulation. Pharmacological prophylaxis contraindicated at this time secondary to GI bleed
[2018-06-18] MEDS ORDERED: Sodium Chlor 0.9% Inj 500 ML IV.SIG ONE (14:20)
[2018-06-18] MEDS: FLUoxetine 20 MG Capsule PO SCH (14:40)
[2018-06-18 15:09] LABS: Baso # (Auto) 0.1 th/mm3 (0.0-0.2); Baso % (Auto) 1.2 % (0.0-2.0); Eos # (Auto) 0.2 th/mm3 (0.0-0.4); Hematocrit 26.2 % (39.0-51.0); Hemoglobin 9.2 gm/dL (13.0-17.0); Lymph # (Auto) 0.4 th/mm3 (1.0-4.8); Lymph % (Auto) 10.8 % (9.0-44.0); Mean Corpuscular HGB Conc 35.2 % (32.0-36.0); Mean Corpuscular Hemoglobin 32.4 pg (27.0-34.0); Mean Corpuscular Volume 92.2 fL (80.0-100.0); Mean Platelet Volume 7.9 fL (7.0-11.0); Mono # (Auto) 0.5 th/mm3 (0.0-0.9); Mono % (Auto) 12.4 % (0.0-8.0); Neut # (Auto) 2.9 th/mm3 (1.8-7.7); Neut % (Auto) 71.6 % (16.0-70.0); Platelet Count 112 th/mm3 (150-450); Red Blood Count 2.84 mil/mm3 (4.50-5.90); Red Cell Distribution Width 15.7 % (11.6-17.2)
[2018-06-18] MEDS: Thiamine Inj 100 MG in Sodium Chlor 0.9% Inj 100 ML IV.SIG SCH (15:40)
[2018-06-18 15:45] LABS: Anion Gap 9 meq/L (5-15); Calcium 7.6 mg/dL (8.5-10.1); Chloride 116 meq/L (98-107); Glomerular Filtration Rate Greater Than 89 mL/min (>89); Glucose,Random 131 mg/dL (74-106); Magnesium 2.1 mg/dL (1.5-2.5); Potassium 3.7 meq/L (3.5-5.1); Sodium 148 meq/L (136-145)
[2018-06-18 15:54] LABS: Blood Urea Nitrogen 20 mg/dL (7-18)
[2018-06-18] MEDS: Latanoprost 0.005% Opth Drops 2.5 ML Bottle EACH EYE SCH (19:07)
[2018-06-18] MEDS ORDERED: Chlorhexidine Gluconate 2% 1 Pack (2 Cloths) TOPICAL ONE (22:57)
[2018-06-18] MEDS ORDERED: Sodium Chlor 0.9% Inj 500 ML IV.SIG SCH (23:00)
[2018-06-19 08:10] LABS: Baso # (Auto) 0.1 th/mm3 (0.0-0.2); Baso % (Auto) 1.5 % (0.0-2.0); Eos # (Auto) 0.3 th/mm3 (0.0-0.4); Eos % (Auto) 7.3 % (0.0-4.0); Hemoglobin 8.7 gm/dL (13.0-17.0); Lymph # (Auto) 0.5 th/mm3 (1.0-4.8); Lymph % (Auto) 14.3 % (9.0-44.0); Mean Corpuscular HGB Conc 34.8 % (32.0-36.0); Mean Corpuscular Hemoglobin 32.4 pg (27.0-34.0); Mean Corpuscular Volume 93.1 fL (80.0-100.0); Mean Platelet Volume 8.1 fL (7.0-11.0); Mono # (Auto) 0.4 th/mm3 (0.0-0.9); Mono % (Auto) 12.3 % (0.0-8.0); Neut # (Auto) 2.3 th/mm3 (1.8-7.7); Neut % (Auto) 64.6 % (16.0-70.0); Platelet Count 100 th/mm3 (150-450); Red Blood Count 2.69 mil/mm3 (4.50-5.90); Red Cell Distribution Width 15.6 % (11.6-17.2); White Blood Count 3.5 th/mm3 (4.0-11.0)
[2018-06-19 08:34] LABS: Anion Gap 9 meq/L (5-15); Blood Urea Nitrogen 15 mg/dL (7-18); Calcium 7.6 mg/dL (8.5-10.1); Chloride 116 meq/L (98-107); Glomerular Filtration Rate Greater Than 89 mL/min (>89); Glucose,Random 105 mg/dL (74-106); Magnesium 1.9 mg/dL (1.5-2.5); Potassium 3.1 meq/L (3.5-5.1); Sodium 146 meq/L (136-145)
[2018-06-19] MEDS: Thiamine Inj 100 MG in Sodium Chlor 0.9% Inj 100 ML IV.SIG SCH (10:08)
--- NOTE | 2018-06-19 12:16 | P.PN ---
Subjective Interval history: Follow-up encephalopathy and GI bleed. Today he is more awake answering questions and following commands appropriately. No active bleed awaiting EGD. Physical Exam Vital signs: Vital Signs 06/18/18 16:00 06/18/18 20:00 06/19/18 00:00 Temperature 97.3 F L 97.8 F 97.2 F L Pulse Rate 65 71 68 Respiratory Rate 18 17 17 Blood Pressure 126/62 127/63 117/63 Pulse Oximetry 98 100 100 06/19/18 08:00 Temperature 98.9 F Pulse Rate 64 Respiratory Rate 16 Blood Pressure 105/60 Pulse Oximetry 99 Intake & Output 06/18/18 06/19/18 06/19/18 18:59 06:59 18:59 Intake Total 1701 / 1701 1999.1999. Output Total 500 / 500 Balance 1201 / 1201 Weight 55 kg Intake: IV 101 / 101 1999.1999.5 NS + KCl 20 mEq Inj 1,000 ML @ 1000 / 1000 75 mls/hr IV.CONT .[id number] [facility] Rx#:[id number] SandoSTATIN Inj 500 MCG In NS 500.5 / 500.5 Inj 500 ML @ 25 MCG/HR 25.02 mls/hr IV.CONT .Q20H1M [facility] Rx#: [id number] NS Inj 500 ML @ Wide Open IV. 500 / 500 SIG BOLUS ONE Rx#:[id number] Thiamine Inj 100 MG In NS Inj 101 / 101 100 ML @ 100 mls/hr IV.SIG DAILY [facility] Rx#:[id number] Oral 1600 / 1600 0 / 0 Output: Urine 500 / 500 Urine/Stool Mix / Other: # Voids 2 Date of Last Bowel Movement 06/17/18 # Bowel Movements 1 Narrative: CONSTITUTIONAL/GENERAL: Elderly male. SKIN: Somewhat pale. Not diaphoretic. CARDIOVASCULAR: Normal rate and regular rhythm without murmurs, gallops, or rubs. No JVD. RESPIRATORY/CHEST: Symmetric, unlabored respirations. Breath sounds equal and clear to auscultation bilaterally. No wheezes, crackles, rales, or rhonchi. GASTROINTESTINAL: Abdomen soft, non-tender, non-distended. No guarding. Bowel sounds present. MUSCULOSKELETAL: Extremities without clubbing, cyanosis, or edema. No joint tenderness or effusion noted. No calf tenderness. No mottling or clubbing. NEUROLOGICAL: Awake and oriented Follows commands. Move all extremities spontaneously. No focal deficits. PSYCHIATRIC: No obvious mood problems. No apparent hallucinations or other psychotic thought process. Results - Labs CBC & Chem 7: 06/19/18 07:32 06/19/18 07:32 Laboratory Results - last 24 hr 06/18/18 06/18/18 06/18/18 14:46 14:46 17:38 WBC 4.0 RBC 2.84 L Hgb 9.2 L Hct 26.2 L MCV 92.2 MCH 32.4 MCHC 35.2 RDW 15.7 Plt Count 112 L MPV 7.9 Neut % (Auto) 71.6 H Lymph % (Auto) 10.8 [place] % (Auto) 12.4 H Eos % (Auto) 4.0 Baso % (Auto) 1.2 Neut # (Auto) 2.9 Lymph # (Auto) 0.[address] [place] # (Auto) 0.5 Eos # (Auto) 0.2 Baso # (Auto) 0.1 WBC Differential . Differential Comment Auto diff final Sodium 148 H Potassium 3.7 Chloride 116 H Carbon Dioxide 23.0 Anion Gap 9 BUN 20 H Creatinine 0.51 L Estimated GFR Greater than 89 POC Glucose 216 H Random Glucose 131 H Calcium 7.6 L Magnesium 2.1 06/18/18 06/19/18 06/19/18 22:16 04:27 07:32 WBC 3.5 L RBC 2.69 L Hgb 8.7 L Hct 25.0 L MCV 93.1 MCH 32.4 MCHC 34.8 RDW 15.6 Plt Count 100 L MPV 8.1 Neut % (Auto) 64.6 Lymph % (Auto) 14.3 [facility] % (Auto) 12.3 H Eos % (Auto) 7.3 H Baso % (Auto) 1.5 Neut # (Auto) 2.3 Lymph # (Auto) 0.[address] [place] # (Auto) 0.4 Eos # (Auto) 0.3 Baso # (Auto) 0.1 WBC Differential . Differential Comment Auto diff final Sodium Potassium Chloride Carbon Dioxide Anion Gap BUN Creatinine Estimated GFR POC Glucose 280 H 124 H Random Glucose Calcium Magnesium 06/19/18 06/19/18 07:32 07:37 WBC RBC Hgb Hct MCV MCH MCHC RDW Plt Count MPV Neut % (Auto) Lymph % (Auto) [facility] % (Auto) Eos % (Auto) Baso % (Auto) Neut # (Auto) Lymph # (Auto) [facility] # (Auto) Eos # (Auto) Baso # (Auto) WBC Differential Differential Comment Sodium 146 H Potassium 3.1 L Chloride 116 H Carbon Dioxide 21.0 Anion Gap 9 BUN 15 Creatinine 0.51 L Estimated GFR Greater than 89 POC Glucose 117 H Random Glucose 105 Calcium 7.6 L Magnesium 1.9 Assessment and Plan - Assessment (1) Cirrhosis of liver Code(s): K74.60 - Unspecified cirrhosis of liver Status: Acute (2) Upper gastrointestinal hemorrhage Code(s): K92.2 - Gastrointestinal hemorrhage, unspecified Status: Acute - Plan 78-year-old male with: Acute probable upper GI bleeding: - Patient with known liver cirrhosis and previous GI bleed. - GI consulted. Continue Protonix drip. - No active bleed for endoscopy today - Hold Lasix and spironolactone given borderline hypotension. Acute blood loss anemia: - Hemoglobin on presentation is 7.5. Last documented hemoglobin about a year ago was normal. - Improved with transfusion - Follow serial H&H. Borderline hypotension: Secondary to above. - Continue IV fluids. Somnolence: Probably from acute anemia. Hyperammonemia may be contributing as well. Patient has hepatic encephalopathy which is improving -Ct lactulose consider rifaximin -Consult speech therapy for cognitive eval and physical therapy DVT prophylaxis with SCD and early ambulation. Pharmacological prophylaxis contraindicated at this time secondary to GI bleed Discharge Planning: Possible discharge in the morning pending EGD
--- NOTE | 2018-06-19 15:58 | P.PCN ---
Procedure: THANK YOU FOR THE REFERRAL Indication; anemia, melena Procedure Performed; upper endoscopy with biopsy, dilation of esophageal stricture After informing the patient about procedure and possible complications consent was signed. history and physical were updated. Patient was taken to the procedure room and placed in position. Time out was completed. Adequate sedation was performed by anesthesia provider. Upper Endoscopy, the scope was placed in the mouth advanced under video guide to the second portion of the duodenum, then the scope was withdrawal to the stomach and retro-flexion was performed, the scope was withdrawal to the esophagus then out of the mouth without any immediate complication Findings; Esophagus: Distal esophageal ring status post dilation with savory guidewire size 17 Stomach moderate gastritis biopsy from the antrum Duodenum duodenal bulb ulcer clean base no active bleeding Recommendations; 1- Supportive care 2- ok to transfer to recovery area then discharge per protocol 3-no NSAIDs 4-diet as tolerated 5- EGD as needed 6-Protonix 40 mg daily 7-follow-up biopsy
--- NOTE | 2018-06-19 16:00 | P.PNGI ---
Subjective Interval history: Patient laying in bed, seems to be comfortable, no active bleeding, hemoglobin stable Physical Exam Vital signs: Vital Signs 06/18/18 16:00 06/18/18 20:00 06/19/18 00:00 Temperature 97.3 F L 97.8 F 97.2 F L Pulse Rate 65 71 68 Respiratory Rate 18 17 17 Blood Pressure 126/62 127/63 117/63 Pulse Oximetry 98 100 100 06/19/18 08:00 Temperature 98.9 F Pulse Rate 64 Respiratory Rate 16 Blood Pressure 105/60 Pulse Oximetry 99 Intake & Output 06/18/18 06/19/18 06/19/18 18:59 06:59 18:59 Intake Total 1701 / 1701 1999. / 101 Output Total 500 / 500 3 / 3 Balance 1201 / 1201 101 / 101 Weight 55 kg Intake: IV 101 1999. / NS + KCl 20 mEq Inj 1,000 ML @ 1000 / 1000 75 mls/hr IV.CONT .[id number] [facility] Rx#:[id number] SandoSTATIN Inj 500 MCG In NS 500.5 / 500.5 Inj 500 ML @ 25 MCG/HR 25.02 mls/hr IV.CONT .Q20H1M [facility] Rx#: [id number] NS Inj 500 ML @ Wide Open IV. 500 / 500 SIG BOLUS ONE Rx#:[id number] Thiamine Inj 100 MG In NS Inj / 101 / 101 100 ML @ 100 mls/hr IV.SIG DAILY [facility] Rx#:[id number] Oral 1600 / 1600 0 / 0 Output: Urine 500 / 500 Urine/Stool Mix 3 / 3 Other: # Voids 2 Date of Last Bowel Movement 06/17/18 # Bowel Movements 1 - Constitutional no acute distress - Routine HEENT Exam Head: Present: normocephalic, atraumatic Eye: Present: EOMI ENT: Present: mucous membranes moist - Routine Neck Exam Present: supple, full ROM - Routine Respiratory Exam Present: CTA bilaterally - Routine Cardiovascular Exam Present: RRR, S1, S2 - Routine Abdominal Exam Present: soft, normoactive bowel sounds Results - Labs CBC & Chem 7: 06/19/18 07:32 06/19/18 07:32 Laboratory Results - last 24 hr 06/18/18 06/18/18 06/19/18 17:38 22:16 04:27 WBC RBC Hgb Hct MCV MCH MCHC RDW Plt Count MPV Neut % (Auto) Lymph % (Auto) [place] % (Auto) Eos % (Auto) Baso % (Auto) Neut # (Auto) Lymph # (Auto) [place] # (Auto) Eos # (Auto) Baso # (Auto) WBC Differential Differential Comment Sodium Potassium Chloride Carbon Dioxide Anion Gap BUN Creatinine Estimated GFR POC Glucose 216 H 280 H 124 H Random Glucose Calcium Magnesium 06/19/18 06/19/18 06/19/18 07:32 07:32 07:37 WBC 3.5 L RBC 2.69 L Hgb 8.7 L Hct 25.0 L MCV 93.1 MCH 32.4 MCHC 34.8 RDW 15.6 Plt Count 100 L MPV 8.1 Neut % (Auto) 64.6 Lymph % (Auto) 14.3 [place] % (Auto) 12.3 H Eos % (Auto) 7.3 H Baso % (Auto) 1.5 Neut # (Auto) 2.3 Lymph # (Auto) 0.5 L [place] # (Auto) 0.4 Eos # (Auto) 0.3 Baso # (Auto) 0.1 WBC Differential . Differential Comment Auto diff final Sodium 146 H Potassium 3.1 L Chloride 116 H Carbon Dioxide 21.0 Anion Gap 9 BUN 15 Creatinine 0.51 L Estimated GFR Greater than 89 POC Glucose 117 H Random Glucose 105 Calcium 7.6 L Magnesium 1.9 06/19/18 12:22 WBC RBC Hgb Hct MCV MCH MCHC RDW Plt Count MPV Neut % (Auto) Lymph % (Auto) [place] % (Auto) Eos % (Auto) Baso % (Auto) Neut # (Auto) Lymph # (Auto) [place] # (Auto) Eos # (Auto) Baso # (Auto) WBC Differential Differential Comment Sodium Potassium Chloride Carbon Dioxide Anion Gap BUN Creatinine Estimated GFR POC Glucose 127 H Random Glucose Calcium Magnesium Assessment and Plan - Plan Patient is 78-year-old gentleman with cirrhosis, came with black stool, anemia, known to have history of peptic ulcer disease, had upper endoscopy today Findings; Esophagus: Distal esophageal ring status post dilation with savory guidewire size 17 Stomach moderate gastritis biopsy from the antrum Duodenum duodenal bulb ulcer clean base no active bleeding Recommendations; 1- Supportive care 2- ok to transfer to recovery area then discharge per protocol 3-no NSAIDs 4-diet as tolerated 5- EGD as needed 6-Protonix 40 mg daily 7-follow-up biopsy
[2018-06-19] MEDS: FLUoxetine 20 MG Capsule PO SCH (17:05)
[2018-06-19] MEDS: Latanoprost 0.005% Opth Drops 2.5 ML Bottle EACH EYE SCH (17:21)
[2018-06-19 18:50] LABS: Bilirubin,Urine Negative (Negative); Clarity,Urine Hazy (Clear); Color,Urine Yellow (Yellw/Straw); Glucose,Urine (UA) Negative (Negative); Hyaline Casts,Urine 4 /lpf (0-3); Leukocyte Esterase,Urine Negative (Negative); Mucus,Urine Few /lpf (Occasional); Nitrite,Urine Negative (Negative); Specific Gravity,Urine 1.014 (1.002-1.035)
[2018-06-20 06:27] LABS: Baso % (Auto) 0.9 % (0.0-2.0); Eos # (Auto) 0.3 th/mm3 (0.0-0.4); Eos % (Auto) 6.6 % (0.0-4.0); Hematocrit 24.5 % (39.0-51.0); Hemoglobin 8.5 gm/dL (13.0-17.0); Lymph # (Auto) 0.4 th/mm3 (1.0-4.8); Lymph % (Auto) 9.5 % (9.0-44.0); Mean Corpuscular HGB Conc 34.6 % (32.0-36.0); Mean Corpuscular Hemoglobin 32.5 pg (27.0-34.0); Mean Corpuscular Volume 93.8 fL (80.0-100.0); Mean Platelet Volume 8.4 fL (7.0-11.0); Mono # (Auto) 0.5 th/mm3 (0.0-0.9); Mono % (Auto) 13.1 % (0.0-8.0); Neut # (Auto) 2.9 th/mm3 (1.8-7.7); Neut % (Auto) 69.9 % (16.0-70.0); Platelet Count 100 th/mm3 (150-450); Red Blood Count 2.62 mil/mm3 (4.50-5.90); Red Cell Distribution Width 15.7 % (11.6-17.2); White Blood Count 4.2 th/mm3 (4.0-11.0)
[2018-06-20 06:58] LABS: Anion Gap 8 meq/L (5-15); Blood Urea Nitrogen 8 mg/dL (7-18); Calcium 7.5 mg/dL (8.5-10.1); Chloride 113 meq/L (98-107); Glomerular Filtration Rate Greater Than 89 mL/min (>89); Glucose,Random 126 mg/dL (74-106); Magnesium 1.6 mg/dL (1.5-2.5); Potassium 3.4 meq/L (3.5-5.1); Sodium 144 meq/L (136-145)
[2018-06-20 06:59] LABS: Phosphorus 2.1 mg/dL (2.5-4.9)
[2018-06-20] MEDS ORDERED: Potassium Phosphate 500 MG Soluble Tablet PO SCH (09:00)
[2018-06-20] MEDS: FLUoxetine 20 MG Capsule PO SCH (09:01)
--- NOTE | 2018-06-20 13:18 | P.PNGI ---
Subjective Interval history: Patient is a pleasant 78-year-old male who is sitting up in bed watching TV appears to be comfortable denies any active noted bleeding. Denies abdominal pain and states he is tolerating meals well. Patient is post EGD done [address] He. Upton Physical Exam Vital signs: Vital Signs 06/19/18 16:07 06/19/18 20:11 06/20/18 00:14 Temperature 97.2 F L 98.1 F 98.2 F Pulse Rate 66 68 70 Respiratory Rate 18 18 16 Blood Pressure 111/53 L 112/85 111/55 L Pulse Oximetry 100 99 95 06/20/18 08:00 06/20/18 12:00 Temperature 97.9 F 97.9 F Pulse Rate 71 Respiratory Rate 18 18 Blood Pressure 121/76 121/76 Pulse Oximetry 99 99 Intake & Output 06/19/18 06/20/18 06/20/18 18:59 06:59 18:59 Intake Total 1501 / 1501 2180.5 / 2180.5 500 / 500 Output Total 300 / 300 580 / 580 Balance 1201 / 1201 1600.5 / 1600.5 500 / 500 Weight 55 kg Intake: IV 1101 / 1101 1500.5 / 1500.5 500 / 500 NS + KCl 20 mEq Inj 1,000 ML @ 1000 / 1000 1000 / 1000 500 / 500 75 mls/hr IV.CONT .[id number] [facility] Rx#:[id number] SandoSTATIN Inj 500 MCG In NS 500.5 / 500.5 Inj 500 ML @ 25 MCG/HR 25.02 mls/hr IV.CONT .Q20H1M [facility] Rx#: [id number] Thiamine Inj 100 MG In NS Inj 101 / 101 100 ML @ 100 mls/hr IV.SIG DAILY [facility] Rx#:[id number] Oral 680 / 680 Anesthesia Amount 400 / 400 Output: Urine 300 / 300 580 / 580 Other: # Bowel Movements 2 - Constitutional no acute distress, cooperative - Routine HEENT Exam Head: Present: normocephalic - Routine Neck Exam Present: supple - Routine Respiratory Exam Present: CTA bilaterally. Absent: respiratory distress - Routine Cardiovascular Exam Present: RRR - Routine Abdominal Exam Present: soft, normoactive bowel sounds. Absent: tenderness, guarding, firm Comments: Mild abdominal distention without tenderness. Bowel sounds active - Routine Extremities Exam Present: pulses intact - Routine Skin Exam Present: dry, warm - Routine Neurological Exam Present: alert, oriented X3 - Detailed Neurological Exam: Coma Scale Eye Opening: Spontaneous Verbal Response: Oriented Motor Response: Obey commands [place] Coma Scale Total: 15 - Routine Psychiatric Exam Present: normal affect, cooperative Results - Labs CBC & Chem 7: 06/20/18 05:33 06/20/18 05:33 Laboratory Results - last 24 hr 06/17/18 06/19/18 06/19/18 06:45 17:25 18:23 WBC RBC Hgb Hct MCV MCH MCHC RDW Plt Count MPV Neut % (Auto) Lymph % (Auto) [place] % (Auto) Eos % (Auto) Baso % (Auto) Neut # (Auto) Lymph # (Auto) [place] # (Auto) Eos # (Auto) Baso # (Auto) WBC Differential Differential Comment Sodium Potassium Chloride Carbon Dioxide Anion Gap BUN Creatinine Estimated GFR POC Glucose 153 H Random Glucose Calcium Phosphorus Magnesium Urine Color Yellow Urine Clarity Hazy H Urine pH 5.0 Ur Specific [place] 1.014 Urine Protein Negative Urine Glucose (UA) Negative Urine Ketones Trace H Urine Occult Blood Negative Urine Nitrate Negative Urine Bilirubin Negative Urine Urobilinogen Less than 2 Ur Leukocyte Esterase Negative Urine RBC Less than 1 Urine WBC 1 Hyaline Casts 4 Urine Mucus Few H Micro UA Comment Culture not ind Ur Microscopic Review Not Reportable Urine Culture Comments Culture not ind MTS Gel Crossmatch See Detail 06/19/18 06/20/18 06/20/18 20:17 03:42 05:33 WBC 4.2 RBC 2.62 L Hgb 8.5 L Hct 24.5 L MCV 93.8 MCH 32.5 MCHC 34.6 RDW 15.7 Plt Count 100 L MPV 8.4 Neut % (Auto) 69.9 Lymph % (Auto) 9.5 [place] % (Auto) 13.1 H Eos % (Auto) 6.6 H Baso % (Auto) 0.9 Neut # (Auto) 2.9 Lymph # (Auto) 0.4 L [place] # (Auto) 0.5 Eos # (Auto) 0.3 Baso # (Auto) 0.0 WBC Differential . Differential Comment Auto diff final Sodium Potassium Chloride Carbon Dioxide Anion Gap BUN Creatinine Estimated GFR POC Glucose 234 H 160 H Random Glucose Calcium Phosphorus Magnesium Urine Color Urine Clarity Urine pH Ur Specific [place] Urine Protein Urine Glucose (UA) Urine Ketones Urine Occult Blood Urine Nitrate Urine Bilirubin Urine Urobilinogen Ur Leukocyte Esterase Urine RBC Urine WBC Hyaline Casts Urine Mucus Micro UA Comment Ur Microscopic Review Urine Culture Comments MTS Gel Crossmatch 06/20/18 06/20/18 06/20/18 05:33 07:41 11:56 WBC RBC Hgb Hct MCV MCH MCHC RDW Plt Count MPV Neut % (Auto) Lymph % (Auto) [place] % (Auto) Eos % (Auto) Baso % (Auto) Neut # (Auto) Lymph # (Auto) [place] # (Auto) Eos # (Auto) Baso # (Auto) WBC Differential Differential Comment Sodium 144 Potassium 3.4 L Chloride 113 H Carbon Dioxide 23.0 Anion Gap 8 BUN 8 Creatinine 0.47 L Estimated GFR Greater than 89 POC Glucose 131 H 183 H Random Glucose 126 H Calcium 7.5 L Phosphorus 2.1 L Magnesium 1.6 Urine Color Urine Clarity Urine pH Ur Specific [place] Urine Protein Urine Glucose (UA) Urine Ketones Urine Occult Blood Urine Nitrate Urine Bilirubin Urine Urobilinogen Ur Leukocyte Esterase Urine RBC Urine WBC Hyaline Casts Urine Mucus Micro UA Comment Ur Microscopic Review Urine Culture Comments MTS Gel Crossmatch Assessment and Plan - Plan Patient is 78-year-old gentleman with cirrhosis, came with black stool, anemia, known to have history of peptic ulcer disease, had upper endoscopy today Findings; Esophagus: Distal esophageal ring status post dilation with savory guidewire size 17 Stomach moderate gastritis biopsy from the antrum Duodenum duodenal bulb ulcer clean base no active bleeding 06/20/18- Pt resting comfortably. Denies discomfort.States bm this am was " not dark or black". Admitted to hospital with co black tarry stools and anemia. Denies active noted bleeding at this time. EGD done 06/19/18 and revealed --> Distal esophagus ring status post dilation with guidewire size 17. Stomach with moderate gastritis, biopsy done from the gastric antrum. Duodenum duodenal bulb ulcer clean base with no active bleeding. Results discussed with patients. Plan: - diet as tolerated - Continue Protonix 40 mg po daily - Avoid NSAIDS and hepatotoxic drugs - Avoid ETOH - Plan for follow up biopsy
--- NOTE | 2018-06-20 14:42 | P.DCO ---
- Physical Therapy Order: Evaluate and treat, Improve ambulation, Strength and gait training - Home Health Nursing Order: Medical education, Medication education-adverse effect, Nursing assessment with vital signs - Certification I have seen patient Kennedy Landaverde on 06/20/18. My clinical findings support the need for the requested home health care services because: Deconditioned with increased weakness I certify that my clinical findings support that this patient is homebound because: Unsafe to leave home unassisted, Need for psychosocial assistance
--- NOTE | 2018-06-20 14:58 | P.DS ---
Date of admission: 06/17/18 07:49 Primary care physician: Alfonzo Talavera DO Brief History from admission: 78-year-old male with a medical history significant for liver cirrhosis, previous GI bleed from duodenal ulcer who had an episode of black tarry stool and coffee-ground emesis. EMS reported systolic blood pressure in the 80s. The patient was given a normal saline bolus with good blood pressure response. Patient has known history of nonalcoholic liver cirrhosis and. There has been no recent change in his medications. He denies drinking alcohol. Denies taking NSAIDs or steroids recently. On my evaluation, he denies shortness of breath or chest pain. He is somnolent and his report this is not his usual behavior. He is aware of self and place. Patient had another large episode of tarry stool prior to my evaluation today. DS: Diagnosis - Discharge Diagnosis (1) Upper gastrointestinal hemorrhage Status: Acute (2) Cirrhosis of liver Status: Acute DS: Medications - Discharge Medications Prescriptions: pantoprazole 40 mg PO DAILY #30 tab potassium phosphate, monobasic [K-Phos Original] 1,000 mg PO BID #4 tab thiamine HCl (vitamin B1) 100 mg PO DAILY #30 tab DS: Summary Hospital Course: 78-year-old male with: Acute probable upper GI bleeding: - Patient with known liver cirrhosis and previous GI bleed. - GI consulted. EGD performed status post dilatation of the esophageal stricture. He has gastritis status post biopsy and duodenal ulcer with clean base no active bleed. Continue PPI and follow-up biopsy. Acute blood loss anemia: - Hemoglobin on presentation is 7.5. Last documented hemoglobin about a year ago was normal. - Improved with transfusion - Follow serial H&H. Borderline hypotension: Secondary to above. Resolved Somnolence: Probably from acute anemia. Hyperammonemia may be contributing as well. Patient has hepatic encephalopathy which is improving -Ct lactulose consider rifaximin -Outpatient follow-up with speech therapy DVT prophylaxis with SCD and early ambulation. Pharmacological prophylaxis contraindicated at this time secondary to GI bleed - Time Spent with Patient Total time spent providing and/or coordinating discharge services: Greater than 30 minutes Exam Vital signs: Vital Signs 06/19/18 16:07 06/19/18 20:11 06/20/18 00:14 Temperature 97.2 F L 98.1 F 98.2 F Pulse Rate 66 68 70 Respiratory Rate 18 18 16 Blood Pressure 111/53 L 112/85 111/55 L Pulse Oximetry 100 99 95 06/20/18 08:00 06/20/18 12:00 Temperature 97.9 F 97.9 F Pulse Rate 71 Respiratory Rate 18 18 Blood Pressure 121/76 121/76 Pulse Oximetry 99 99 Intake & Output 06/19/18 06/20/18 06/20/18 18:59 06:59 18:59 Intake Total 1501 / 1501 2180.5 / 2180.5 500 / 500 Output Total 300 / 300 580 / 580 Balance 1201 / 1201 1600.5 / 1600.5 500 / 500 Weight 55 kg Intake: IV 1101 / 1101 1500.5 / 1500.5 500 / 500 NS + KCl 20 mEq Inj 1,000 ML @ 1000 / 1000 1000 / 1000 500 / 500 75 mls/hr IV.CONT .[id number] [facility] Rx#:[id number] SandoSTATIN Inj 500 MCG In NS 500.5 / 500.5 Inj 500 ML @ 25 MCG/HR 25.02 mls/hr IV.CONT .Q20H1M [facility] Rx#: [id number] Thiamine Inj 100 MG In NS Inj 101 / 101 100 ML @ 100 mls/hr IV.SIG DAILY [facility] Rx#:[id number] Oral 680 / 680 Anesthesia Amount 400 / 400 Output: Urine 300 / 300 580 / 580 Other: # Bowel Movements 2 Narrative: CONSTITUTIONAL/GENERAL: Elderly male. SKIN: Somewhat pale. Not diaphoretic. CARDIOVASCULAR: Normal rate and regular rhythm without murmurs, gallops, or rubs. No JVD. RESPIRATORY/CHEST: Symmetric, unlabored respirations. Breath sounds equal and clear to auscultation bilaterally. No wheezes, crackles, rales, or rhonchi. GASTROINTESTINAL: Abdomen soft, non-tender, non-distended. No guarding. Bowel sounds present. MUSCULOSKELETAL: Extremities without clubbing, cyanosis, or edema. No joint tenderness or effusion noted. No calf tenderness. No mottling or clubbing. NEUROLOGICAL: Awake and oriented Follows commands. Move all extremities spontaneously. No focal deficits. PSYCHIATRIC: No obvious mood problems. No apparent hallucinations or other psychotic thought process. Results Procedures completed during hospitalization: EGD with esophageal dilatation Pending studies at discharge: Pending at discharge 06/19/18 09:04 Surgical [PTH] Routine Labs on day of discharge: Labs from last 24 hours 06/20/18 06/20/18 06/20/18 11:56 07:41 05:33 WBC RBC Hgb Hct MCV MCH MCHC RDW Plt Count MPV Neut % (Auto) Lymph % (Auto) [place] % (Auto) Eos % (Auto) Baso % (Auto) Neut # (Auto) Lymph # (Auto) [place] # (Auto) Eos # (Auto) Baso # (Auto) WBC Differential Differential Comment Sodium 144 Potassium 3.4 L Chloride 113 H Carbon Dioxide 23.0 Anion Gap 8 BUN 8 Creatinine 0.47 L Estimated GFR Greater than 89 POC Glucose 183 H 131 H Random Glucose 126 H Calcium 7.5 L Phosphorus 2.1 L Magnesium 1.6 Urine Color Urine Clarity Urine pH Ur Specific [place] Urine Protein Urine Glucose (UA) Urine Ketones Urine Occult Blood Urine Nitrate Urine Bilirubin Urine Urobilinogen Ur Leukocyte Esterase Urine RBC Urine WBC Hyaline Casts Urine Mucus Micro UA Comment Ur Microscopic Review Urine Culture Comments MTS Gel Crossmatch 06/20/18 06/20/18 06/19/18 05:33 03:42 20:17 WBC 4.2 RBC 2.62 L Hgb 8.5 L Hct 24.5 L MCV 93.8 MCH 32.5 MCHC 34.6 RDW 15.7 Plt Count 100 L MPV 8.4 Neut % (Auto) 69.9 Lymph % (Auto) 9.5 [place] % (Auto) 13.1 H Eos % (Auto) 6.6 H Baso % (Auto) 0.9 Neut # (Auto) 2.9 Lymph # (Auto) 0.4 L [place] # (Auto) 0.5 Eos # (Auto) 0.3 Baso # (Auto) 0.0 WBC Differential . Differential Comment Auto diff final Sodium Potassium Chloride Carbon Dioxide Anion Gap BUN Creatinine Estimated GFR POC Glucose 160 H 234 H Random Glucose Calcium Phosphorus Magnesium Urine Color Urine Clarity Urine pH Ur Specific [place] Urine Protein Urine Glucose (UA) Urine Ketones Urine Occult Blood Urine Nitrate Urine Bilirubin Urine Urobilinogen Ur Leukocyte Esterase Urine RBC Urine WBC Hyaline Casts Urine Mucus Micro UA Comment Ur Microscopic Review Urine Culture Comments MTS Gel Crossmatch 06/19/18 06/19/18 06/17/18 18:23 17:25 06:45 WBC RBC Hgb Hct MCV MCH MCHC RDW Plt Count MPV Neut % (Auto) Lymph % (Auto) [place] % (Auto) Eos % (Auto) Baso % (Auto) Neut # (Auto) Lymph # (Auto) [place] # (Auto) Eos # (Auto) Baso # (Auto) WBC Differential Differential Comment Sodium Potassium Chloride Carbon Dioxide Anion Gap BUN Creatinine Estimated GFR POC Glucose 153 H Random Glucose Calcium Phosphorus Magnesium Urine Color Yellow Urine Clarity Hazy H Urine pH 5.0 Ur Specific [place] 1.014 Urine Protein Negative Urine Glucose (UA) Negative Urine Ketones Trace H Urine Occult Blood Negative Urine Nitrate Negative Urine Bilirubin Negative Urine Urobilinogen Less than 2 Ur Leukocyte Esterase Negative Urine RBC Less than 1 Urine WBC 1 Hyaline Casts 4 Urine Mucus Few H Micro UA Comment Culture not ind Ur Microscopic Review Not Reportable Urine Culture Comments Culture not ind MTS Gel Crossmatch See Detail - Impressions ITS Impressions Chest X-Ray 06/17/18 06:31 CONCLUSION: Lungs are grossly clear. Head CT 06/17/18 07:07 CONCLUSION: 1. Mild diffuse atrophy. No evidence of hemorrhage or edema. No mass or mass effect. . Discharge Plan - Discharge Disposition Patient Disposition: /Home Health Service - Discharge Condition Condition: Fair - Discharge Order Discharge Orders: Discharge Order (Routine); Ordered 06/20/18 Ordered By: Lazaro Carmona - Physicians Team Primary Care Provider: Alfonzo Talavera Attending Provider: Lazaro Carmona Other Providers: Yeny Smith MD
--- NOTE | 2018-06-20 14:59 | P.DCO ---
- Speech Therapy Order: To improve: Speech and communication skills, Cognitive skills - Certification I have seen patient Kennedy Landaverde on 06/20/18. My clinical findings support the need for the requested home health care services because: Medication compliance is questionable, Impaired cognition/judgement I certify that my clinical findings support that this patient is homebound because: Impaired cognitive ability/safety
== END 2018-06-20 19:25 | disposition home health service (06) ==
LOC: NEPC 06:21 → NEDA 07:49 → N07 11:34
PROVIDERS: ADMIT Internal Medicine; ATTEND Internal Medicine
PROC: PANENDO (2018-06-19 14:45)